=== PATIENT | female | born 1955 | race Two or more races ===

== ENCOUNTER 2017-03-27 11:07 | Emergency (ER) | payer OTHER ==
--- NOTE | ~2017-03-27 | EKG ---
PATIENT: DORENE DAVILA UNIT #: [id number] Ventricular Rate: 69 BPM Atrial Rate: 69 BPM P-R Interval: 166 ms QRS Duration: 84 ms Q-T Interval: 396 ms QTC Calculation(Bezet): 424 ms P [place]: 60 degrees Calculated R [employer] [place]: 36 degrees Calculated T [employer] [place]: 59 degrees Diagnosis Line: Normal sinus rhythm Diagnosis Line: Normal ECG Diagnosis Line: No previous ECGs available Diagnosis Line: Confirmed by CAROLINA LE MD ([id number]) on Diagnosis Line: 03/29/2017 1:08:17 PM INTERPRETING MD: LEE
--- NOTE | ~2017-03-27 | CT4 ---
[facility] A Service of [facility] / [facility] RADIOLOGY TEXT RESULTS PATIENT: DORENE DAVILA LOCATION: [place] : 55 UNIT #: [id number] AGE: [address]: Pilar Tafoya MD SEX: F ORDER DR: [id number] [id number] [facility]. [place], [place] [address] [id number] MR#: [id number] Acc #: [id number] NAME: DORENE DAVILA : 1955 SEX: F STUDY DATE/TIME: 03/27/2017 13:58 UNIT: [facility] ROOM: STUDY DESCRIPTION: CT Abd and Pelv Wo Cont Attending Physician: Pilar Tafoya M.D. Ordering Physician: Pilar Tafoya M.D. Primary Care Physician: No Primary Care Physician MEDICAL IMAGING REPORT This report is preliminary unless electronic signature is present EXAM CT scan of the abdomen and pelvis 03/27/2017 HISTORY Generalized abdominal pain and nausea today. Hypertension. Previous history of syphilis. COMPARISON None. PROCEDURE 5 mm noncontrast axial images through the abdomen and pelvis. Enteric contrast was not administered. Sagittal and coronal reformatted images were obtained. This CT exam was performed with one or more of the following radiation dose reduction techniques: automatic exposure control, adjustment of mA and/or kV according to patient size, and iterative reconstruction. FINDINGS ABDOMEN FINDINGS: Lung bases are clear. Heart size is within normal limits. The liver, gallbladder, spleen, pancreas, adrenals and kidneys have a normal noncontrast appearance. There is a jhdjtxjx-mg-sqbkh stool burden within the ascending and transverse colon. Limited evaluation of bowel due to lack of enteric contrast but no evidence of active bowel inflammation or high-grade bowel obstruction. The appendix is not discretely visualized but no pericecal inflammation is appreciated. Abdominal aortic caliber is normal . [facility] A Service of [facility] / [facility] RADIOLOGY TEXT RESULTS PATIENT: DORENE DAVILA LOCATION: [place] : 55 UNIT #: [id number] AGE: [address]: Pilar Tafoya MD SEX: F ORDER DR: PELVIS FINDINGS: Moderate urinary bladder distension. Normal appearance of uterus and rectum. No pathologic adenopathy or free fluid. No acute or suspicious osseous abnormalities are identified. IMPRESSION 1. No acute findings within the abdomen or pelvis. 2. Bcwhtrff-wz-jipxg ascending and transverse colonic stool burden without evidence of obstruction. Correlate for constipation symptoms. 3. The appendix is not visualized. No pericecal inflammation is seen. Dictated by... Nichelle Duenas M.D. THIS IS AN ELECTRONICALLY VERIFIED REPORT Nichelle Duenas M.D. at 03/28/2017 4:33 PM SRINATH/marysol TD: 03/27/2017 17:56 JOB #: [id number] MEDICAL IMAGING REPORT Page 1 of 1 COPY
[2017-03-27 12:17] LABS: POC - CKMB <1.0 ng/mL (0.0-7.9); POC - TROPONIN <0.05 ng/mL (<=0.05)
[2017-03-27 12:19] LABS: URINE SOURCE CLEAN CATCH
[2017-03-27 12:28] LABS: URINE APPEARANCE CLEAR; URINE BILIRUBIN NEG (NEG); URINE BLOOD NEG (NEG); URINE COLOR YELLOW; URINE GLUCOSE NEG (NEG); URINE KETONE NEG (NEG); URINE LEUKOCYTE ESTERASE 1+ (NEG); URINE NITRATE NEG (NEG); URINE PROTEIN NEG (NEG); URINE SPECIFIC GRAVITY 1.021 (1.003-1.035); URINE UROBILINOGEN 0.2 MG/DL (NEG)
[2017-03-27 12:29] LABS: BASOPHIL% 0.7 % (0-2.5); EOSINOPHIL# 0.1 X10e3 (0-0.7); EOSINOPHIL% 1.2 % (0.0-7.0); HEMATOCRIT 36.7 % (35.0-45.0); HEMOGLOBIN 12.1 gm/dL (12.0-16.0); LYMPHOCYTE# 2.1 X10e3 (1.0-3.5); LYMPHOCYTE% 42.9 % (17.0-45.0); MEAN CELL VOLUME 87.9 FL (83-96); MEAN CORPUSCULAR HGB CONC 32.9 g/dL (30-36); MEAN PLATELET VOLUME 7.9 FL (6.5-11.5); MONOCYTE# 0.4 X10e3 (0-1.0); MONOCYTE% 7.7 % (3.0-12.0); NEUTROPHIL# 2.3 X10e3 (1.5-7.1); NEUTROPHIL% 47.5 % (40-75); PLATELET COUNT 267 X10e3 (140-420); RED BLOOD COUNT 4.18 X10e (3.90-5.30); RED CELL DISTRIBUTION WIDTH 13.2 % (11.0-15.5); WHITE BLOOD COUNT 4.8 X10e3 (4.0-10.5)
[2017-03-27 12:31] LABS: URBCS1 AUWI 0-2 /[HPF] (0-2); URINE BACTERIA AUWI NEG (NEGATIVE); URINE SQUAMOUS EPITHELIAL CELL NONE SEEN /[HPF]
[2017-03-27 12:36] LABS: DIFF IND NO
[2017-03-27 12:40] LABS: CULTURE INDICATED? NO
[2017-03-27 13:01] LABS: ALBUMIN SERUM 3.9 g/dL (3.5-5.0); ALKALINE PHOSPHATASE 59 U/L (32-92); ALT (SGPT) 14 U/L (10-40); AMYLASE 29 U/L (0-46); AST (SGOT) 21 U/L (10-42); BILIRUBIN, DIRECT <0.1 mg/dL (0.0-0.2); BILIRUBIN,INDIRECT 0.3 mg/dL (0.0-0.9); BILIRUBIN,TOTAL 0.4 mg/dL (0.2-2.0); BLOOD UREA NITROGEN 15 mg/dL (9-23); CALCIUM SERUM 9.3 mg/dL (8.4-10.2); CARBON DIOXIDE 26 mmol/L (22-31); CHLORIDE 104 mmol/L (100-111); CREATININE SERUM 0.5 mg/dL (0.6-1.4); GLOM FILT RATE Estimated 104.5 mL/min (>60); GLUCOSE FASTING 99 mg/dL (70-110); LIPASE 25 U/L (22-51); POTASSIUM 4.3 mmol/L (3.5-5.1); PROTEIN TOTAL SERUM 7.8 g/dL (6.0-8.3); SODIUM 137 mmol/L (135-145)
[2017-03-27 16:07] LABS: POC - CKMB <1.0 ng/mL (0.0-7.9); POC - TROPONIN <0.05 ng/mL (<=0.05)
== END 2017-03-27 16:25 | disposition home or self-care (01) ==
LOC: CED 11:07
PROVIDERS: Emergency Medicine; Student in an Organized Health Care Education/Training Program
DX: K59.00 Constipation, unspecified (principal); K21.9 Gastro-esophageal reflux disease without esophagitis; I10 Essential (primary) hypertension
CPT/HCPCS: 36415; 74176; 80048; 80076; 81003; 82150; 82553; 83690; 84484; 85025; 93005; 96361; 96374; 96375; 99284; J2270; J2405

== ENCOUNTER 2017-06-15 20:13 | Emergency (ER) | payer OTHER | END 2017-06-15 22:15 | disposition home or self-care (01) | LOC: CED 20:13 | DX: L29.9 Pruritus, unspecified (principal); I10 Essential (primary) hypertension | CPT/HCPCS: 99282 ==